=== PATIENT | female | born 1960 | race Caucasian/White ===

== ENCOUNTER 2017-02-07 20:18 | Emergency (ER) | payer MEDICARE ==
[~2017-02-07 20:18] MED LIST: ALEVE220 MG PO; BYETTA10 SC; CAT2 PO; CLARIT10 PO; GLUCOPHAGE1000 MG PO; PCET PO; PRILOSEC OTC20 MG PO; SYN125 PO; VITD PO; ZESTORETIC1 TA1 PO
== END 2017-02-08 00:40 | disposition left against medical advice (07) ==
LOC: ER 20:18
DX: Z53.1 Procedure and treatment not carried out because of patient's decision for reasons of belief and group pressure (principal); Z88.2 Allergy status to sulfonamides; Z79.899 Other long term (current) drug therapy
CPT/HCPCS: 80053; 81001; 82962; 85025